=== PATIENT | male | born 1995 | race Caucasian/White ===

== ENCOUNTER 2017-05-01 10:56 | Emergency (ER) | payer OTHER ==
[~2017-05-01] VITALS: Ht 185.4 cm; Wt 90.7 kg
[2017-05-01 11:00] VITALS: BP 119/80
[2017-05-01] MEDS ORDERED: TRAMADOL 50 MG50 MG PO (11:41)
[2017-05-01] MEDS ORDERED: PREDNISONE 20 M20 MG PO (11:41)
== END 2017-05-01 12:00 | disposition home or self-care (01) ==
LOC: ER 10:56
DX: M94.0 Chondrocostal junction syndrome [Tietze] (principal); F17.210 Nicotine dependence, cigarettes, uncomplicated; F10.99 Alcohol use, unspecified with unspecified alcohol-induced disorder; Z91.14 Patient's other noncompliance with medication regimen

== ENCOUNTER 2021-12-13 18:43 | Emergency (ER) | payer OTHER ==
[~2021-12-13] VITALS: Ht 185.4 cm; Wt 95.3 kg
[~2021-12-13 18:43] MED LIST: PREDNISONE 20 M20 MG PO; TRAMADOL 50 MG50 MG PO
[2021-12-13] MEDS ORDERED: NOHOMEMEDICATIONS (19:50)
[2021-12-13] MEDS ORDERED: IBU600 MG PO (22:31)
[2021-12-13] MEDS ORDERED: FLEXERIL PO (22:31)
[2021-12-13 22:37] VITALS: BP 95/43
== END 2021-12-13 22:39 | disposition home or self-care (01) ==
LOC: ER 18:43
DX: S16.1XXA Strain of muscle, fascia and tendon at neck level, initial encounter (principal); S29.012A Strain of muscle and tendon of back wall of thorax, initial encounter; S80.01XA Contusion of right knee, initial encounter; F17.210 Nicotine dependence, cigarettes, uncomplicated; Z91.02 Food additives allergy status; V87.7XXA Person injured in collision between other specified motor vehicles (traffic), initial encounter; Y93.89 Activity, other specified; Y92.89 Other specified places as the place of occurrence of the external cause; Y99.8 Other external cause status

== ENCOUNTER 2022-01-02 16:07 | Emergency (ER) | payer OTHER ==
[~2022-01-02] VITALS: Ht 185.4 cm; Wt 92.5 kg
[~2022-01-02 16:07] MED LIST changes: +FLEXERIL PO; +IBU600 MG PO; +NOHOMEMEDICATIONS
[2022-01-02 16:40] VITALS: BP 114/76
== END 2022-01-02 18:29 | disposition home or self-care (01) ==
LOC: ER 16:07
DX: S61.213A Laceration without foreign body of left middle finger without damage to nail, initial encounter (principal); F17.210 Nicotine dependence, cigarettes, uncomplicated; Z86.16 Personal history of COVID-19; Z79.899 Other long term (current) drug therapy; Z91.018 Allergy to other foods; W04.XXXA Fall while being carried or supported by other persons, initial encounter; Y93.89 Activity, other specified; Y92.89 Other specified places as the place of occurrence of the external cause; Y99.8 Other external cause status